=== PATIENT | female | born 1985 | race Caucasian/White ===

== ENCOUNTER 2017-03-17 12:25 | Emergency (ER) | payer SELFPAY ==
--- NOTE | 2017-03-17 13:32 | RAD ---
HISTORY: Left wrist pain and injury COMPARISONS: May 26, 2008 VIEWS: 3, Frontal, lateral, and oblique views of the left wrist FINDINGS: BONE DENSITY: Normal. BONES: There is no displaced fracture. JOINTS: There is no arthropathy. ALIGNMENT: There is no dislocation. SOFT TISSUES: Unremarkable. OTHER FINDINGS: None. IMPRESSION: NO ACUTE OSSEOUS INJURY. IF SYMPTOMS PERSIST, RECOMMEND REPEAT IMAGING.
--- NOTE | 2017-03-17 15:09 | ED ---
Upper Extremity Pain - HPI Summary HPI Summary: 31 female presents with complaints of left wrist injury that occurred while at work this morning around 11am. 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 Patient states the pain is on the medial/ulnar side. She has some ROM. Denies numbness/ tingling. No bruising or swelling. No other injuries. Has not taken any medication. Denies PMHX. - History of Current Complaint Chief Complaint: EDExtremityUpper Stated Complaint: LT WRIST INJURY Time Seen by Provider: 03/17/17 13:12 Hx Obtained From: Patient Hx Last Menstrual Period: 12/2015 Mechanism Of Injury: Twisted Onset/Duration: Started Hours Ago, Traumatic Timing: Constant Severity Initially: Mild Severity Currently: Mild Pain Location: Wrist - left Character: Sharp - with specific movement, Aching Aggravating Factor(s): Movement, Flexion, Extension, Internal/External Rotation , Abduction Alleviating Factor(s): Rest Associated Signs & Symptoms: Positive: Negative Related History: Dominant Hand Right - Allergies/Home Medications Allergies/Adverse Reactions: Allergies Allergy/AdvReac Type Severity Reaction Status Date / Time No Known Allergies Allergy Verified 03/17/17 12:35 PMH/Surg Hx/FS Hx/Imm Hx Endocrine/Hematology History: Denies: Hx Diabetes Cardiovascular History: Denies: Hx Hypertension, Hx Myocardial Infarction Respiratory History: Denies: Hx Lung Cancer - Surgical History Surgery Procedure, Year, and Place: LEFT KNEE SX X 2. CHOLECYSTECTOMY - Immunization History Immunizations Up to Date: Yes Infectious Disease History: No Infectious Disease History: Denies: Traveled Outside the [place] in Last 30 Days - Family History Known Family History: Positive: None - Social History Alcohol Use: None Substance Use Type: Reports: None Smoking Status (MU): Heavy Every Day Tobacco Smoker Type: Cigarettes Amount Used/How Often: 1/2 PPD Have You Smoked in the Last Year: Yes Review of Systems Constitutional: Negative Cardiovascular: Negative Respiratory: Negative Positive: Arthralgia, Myalgia, Decreased ROM - left wrist Skin: Negative Neurological: Negative All Other Systems Reviewed And Are Negative: Yes Physical Exam Triage Information Reviewed: Yes Vital Signs On Initial Exam: Initial Vitals Temp Pulse Resp BP Pulse Ox 97.6 F 73 16 114/66 98 03/17/17 12:35 03/17/17 12:35 03/17/17 12:35 03/17/17 12:35 03/17/17 12:35 Vital Signs Reviewed: Yes Appearance: Positive: Well-Appearing, No Pain Distress, Well-Nourished Skin: Positive: Warm, Skin Color Reflects Adequate Perfusion, Dry. Negative: Cold, Numb, Cyanosis @, Pale, Erythema @ Head/Face: Positive: Normal Head/Face Inspection Eyes: Positive: Conjunctiva Clear ENT: Positive: Hearing grossly normal Neck: Positive: Supple, Nontender Respiratory/Lung Sounds: Positive: Clear to Auscultation, Breath Sounds Present. Negative: Rales, Rhonchi, Wheezes Cardiovascular: Positive: Normal, RRR, Pulses are Symmetrical in both Upper and Lower Extremities - 2+ radial b/l. Negative: Murmur, Rub Musculoskeletal: Positive: Limited @ - with external rotation and abduction mostly. some pain and limited ROM extension and flexion however is able some, Pain @ - right medial/ulnar wrist on palpation and movement. no snuff box tenderness, no ecchymosis, edema, crepitus, step off, or obvious deformity. Negative: Abnormal @, Edema Left, Edema Right Neurological: Positive: Normal, Sensory/Motor Intact - sensation intact, Alert, Oriented to Person Place, Time, Reflexes Intact, NV Bundle Intact Distally, Normal Gait - [place] Coma Scale Coma Scale Total: 15 Diagnostics - Vital Signs Vital Signs Temp Pulse Resp BP Pulse Ox 03/17/17 13:11 97.6 F 70 16 114/66 98 03/17/17 12:35 97.6 F 73 16 114/66 98 - Laboratory Lab Statement: Any lab studies that have been ordered have been reviewed, and results considered in the medical decision making process. - Radiology wrist left Xray Interpretation: No Acute Changes Radiology Interpretation Completed By: Radiologist Course/Dx - Course Course Of Treatment: given naproxen while in ED, had relief. given brace. xray obtained and negative for fracture/dislocation. no tender or concern for forearm injury, due to complaint of symptoms and pe findings. RICE and continue NSAIDs. follow up pcp. refrain from use of wrist until symptoms improve. - Diagnoses Differential Diagnosis/HQI/PQRI: Positive: Contusion, Fracture (Closed), Strain , Sprain Provider Diagnoses: Left wrist sprain Discharge - Discharge Plan Condition: Stable Disposition: HOME Patient Education Materials: Wrist Sprain (ED) Referrals: Macarena Lerner MD [Primary Care Provider] - Rosaura Shine MD [Medical Doctor] - Additional Instructions: Continue taking aleve for pain and inflammation. Rest, elevate and ice. Wear wrist brace. Follow up with Primary care provider. Refrain from use while symptoms persist. Worsening symptoms or new symptoms please seek medical attention.
[2017-03-17] MEDS ORDERED: Naproxen TAB* 250 MG PO ONE (15:25)
[2017-03-17 15:38] VITALS: BP 111/60
== END 2017-03-17 15:37 | disposition home or self-care (01) ==
LOC: ED 12:25
DX: S63.502A Unspecified sprain of left wrist, initial encounter (principal); X50.0XXA Overexertion from strenuous movement or load, initial encounter; Y93.F2 Activity, caregiving, lifting; Y92.89 Other specified places as the place of occurrence of the external cause; F17.210 Nicotine dependence, cigarettes, uncomplicated
CPT/HCPCS: 99282

== ENCOUNTER 2017-04-29 07:32 | Emergency (ER) | payer BC ==
[2017-04-29 09:01] LABS: Urine Bacteria Absent (Absent); Urine Bilirubin Negative (Negative); Urine Glucose Negative (Negative); Urine Nitrite Negative (Negative)
[2017-04-29 09:48] LABS: Hematocrit 45 % (35-47); Hemoglobin 15.6 g/dl (12.0-16.0); Mean Corpuscular HGB Conc 35 g/dl (31-36); Mean Corpuscular Hemoglobin 31 pg (27-31); Mean Corpuscular Volume 89 fL (80-97); Mean Platelet Volume 8 um3 (7.4-10.4); Red Blood Count 5.02 10^6/ul (4.0-5.4); Red Cell Distribution Width 13 % (10.5-15); White Blood Count 9.6 10^3/ul (3.5-10.8)
[2017-04-29 10:28] LABS: ALT 11 U/L (7-52); AST 14 U/L (13-39); Albumin 4.7 g/dL (3.2-5.2); Alkaline Phosphatase 66 U/L (34-104); Anion Gap 6 mmol/L (2-11); Blood Urea Nitrogen 9 mg/dL (6-24); C Reactive Protein < 1.00 mg/L (< 5.00); CO2 Carbon Dioxide 24 mmol/L (22-32); Calcium 9.2 mg/dL (8.6-10.3); Chloride 108 mmol/L (101-111); EGFR African American 128.5 (>60); EGFR Non-African American 99.9 (>60); Globulin 2.9 g/dL (2-4); Glucose 77 mg/dL (70-100); Lipase 24 U/L (11.0-82.0); Potassium 3.8 mmol/L (3.5-5.0); Sodium 138 mmol/L (133-145); Total Protein 7.6 g/dL (6.4-8.9)
--- NOTE | 2017-04-29 10:42 | ED ---
Abdominal Pain/Female - HPI Summary HPI Summary: Pt here w/ RUQ pain x 2 days. Started yesterday while at work - felt some intermittent "cramping" sensations. Wraps around to back. Didn't think much of it as she was working and pain didn't last long. This morning had an acute bout of worse pain that triggered nausea - no vomiting and no N/V since. Had a normal BM w/o dark tarry stool or hematochezia. Denies fever, chills, chest pain , SOB, flank pain, groin pain, dysuria, urinary frequency/urgency, hematuria. She has h/o cholecystectomy and reports this feels similar to a "gallbladder attack". Does report eating shrimp and fries yesterday prior to pain starting but doesn't feel this is more fat than she's used to eating. Also admits she typically gets loose stools w/ eating too much fat since cholecystectomy and hasn't had that since. She also reports h/o ovarian cyst - not sure if this feels the same? Has nexplanon in place and no ovarian sx since placement 1 year ago. Menstruating currently - periods are unpredictable since with nexplanon. Still has appendix. - History of Current Complaint Chief Complaint: EDAbdPain Stated Complaint: RIGHT ABD PAIN Time Seen by Provider: 04/29/17 09:33 Hx Obtained From: Patient Hx Last Menstrual Period: 12/2015 Pain Intensity: 7 Allergies/Adverse Reactions: Allergies Allergy/AdvReac Type Severity Reaction Status Date / Time No Known Allergies Allergy Verified 04/29/17 07:53 PMH/Surg Hx/FS Hx/Imm Hx Previously Healthy: Yes Endocrine/Hematology History: Denies: Hx Diabetes, Hx Thyroid Disease, Hx Unexplained Bleeding, Autoimmune Disease Cardiovascular History: Denies: Hx Hypertension, Hx Myocardial Infarction Respiratory History: Denies: Hx Lung Cancer GI History: Reports: Hx Gall Bladder Disease - s/p cholecystectomy, Hx Gastroesophageal Reflux Disease - during only Denies: Hx Cirrhosis, Hx Crohn's Disease, Hx Diverticulosis, Hx Gastrointestinal Bleed, Hx Hiatal Hernia, Hx Irritable Bowel, Hx Obstructive Bowel, Hx Ulcer History: Denies: Hx Kidney Infection, Hx Kidney Stones - Surgical History Surgery Procedure, Year, and Place: LEFT KNEE SX X 2. CHOLECYSTECTOMY Infectious Disease History: No Infectious Disease History: Denies: Traveled Outside the [place] in Last 30 Days - Family History Known Family History: Positive: None - Social History Occupation: Employed Full-time - long term Lives: With Family Alcohol Use: Rare Hx Substance Use: No Substance Use Type: Reports: None Hx Tobacco Use: Yes Smoking Status (MU): Current Every Day Smoker Type: Cigarettes Amount Used/How Often: 1/2 PPD Have You Smoked in the Last Year: Yes Review of Systems Constitutional: Negative Negative: Fever, Chills, Fatigue ENT: Negative Cardiovascular: Negative Respiratory: Negative Gastrointestinal: Other - see HPI Genitourinary: Negative Musculoskeletal: Negative Skin: Negative Neurological: Negative Psychological: Normal All Other Systems Reviewed And Are Negative: Yes Physical Exam Triage Information Reviewed: Yes Vital Signs On Initial Exam: Initial Vitals Temp Pulse Resp BP Pulse Ox 98.0 F 75 14 102/58 98 04/29/17 07:51 04/29/17 07:51 04/29/17 07:51 04/29/17 07:51 04/29/17 07:51 Vital Signs Reviewed: Yes Appearance: Positive: Well-Appearing, No Pain Distress - pt sleeping comfortably on stretcher upon entrance to room, Well-Nourished Skin: Positive: Warm, Dry Head/Face: Positive: Normal Head/Face Inspection Eyes: Positive: Normal, Conjunctiva Clear - anicteric sclera ENT: Positive: Normal ENT inspection, Hearing grossly normal, Pharynx normal - mucosa moist Neck: Positive: Supple Respiratory/Lung Sounds: Positive: Clear to Auscultation, Breath Sounds Present. Negative: Rales, Rhonchi, Wheezes Cardiovascular: Positive: Normal, RRR, S1, S2 Abdomen Description: Positive: No Organomegaly, Soft, [place] Tenderness. Negative: CVA Tenderness (R), CVA Tenderness (L), Distended, Guarding Bowel Sounds: Positive: Present Musculoskeletal: Positive: Normal, Strength/ROM Intact Neurological: Positive: Normal, Sensory/Motor Intact, Alert, Oriented to Person Place, Time, CN Intact II-III Psychiatric: Positive: Normal - [place] Coma Scale Coma Scale Total: 15 Diagnostics - Vital Signs Vital Signs Temp Pulse Resp BP Pulse Ox 04/29/17 10:00 51 106/53 99 04/29/17 09:29 65 99 04/29/17 09:26 99/63 04/29/17 07:51 98.0 F 75 14 102/58 98 - Laboratory Lab Results: Lab Results 04/29/17 04/29/17 04/29/17 Range/Units 08:20 08:45 08:45 WBC 9.6 (3.5-10.8) 10^3/ul RBC 5.02 (4.0-5.4) 10^6/ul Hgb 15.6 (12.0-16.0) g/dl Hct 45 (35-47) % MCV 89 (80-97) fL MCH 31 (27-31) pg MCHC 35 (31-36) g/dl RDW 13 (10.5-15) % Plt Count 299 (150-450) 10^3/ul MPV 8 (7.4-10.4) um3 Neut % (Auto) 62.3 (38-83) % Lymph % (Auto) 29.1 (25-47) % [place] % (Auto) 5.0 (1-9) % Eos % (Auto) 2.5 (0-6) % Baso % (Auto) 1.1 (0-2) % Absolute Neuts (auto) 6.0 (1.5-7.7) 10^3/ul Absolute Lymphs (auto) 2.8 (1.0-4.8) 10^3/ul Absolute Monos (auto) 0.5 (0-0.8) 10^3/ul Absolute Eos (auto) 0.2 (0-0.6) 10^3/ul Absolute Basos (auto) 0.1 (0-0.2) 10^3/ul Absolute Nucleated RBC 0.01 10^3/ul Nucleated RBC % 0.1 Sodium 138 (133-145) mmol/L Potassium 3.8 (3.5-5.0) mmol/L Chloride 108 (101-111) mmol/L Carbon Dioxide 24 (22-32) mmol/L Anion Gap 6 (2-11) mmol/L BUN 9 (6-24) mg/dL Creatinine 0.69 (0.51-0.95) mg/dL Est GFR ( Amer) 128.5 (>60) Est GFR (Non-Af Amer) 99.9 (>60) BUN/Creatinine Ratio 13.0 (8-20) Glucose 77 (70-100) mg/dL Calcium 9.2 (8.6-10.3) mg/dL Total Bilirubin 0.30 (0.2-1.0) mg/dL AST 14 (13-39) U/L ALT 11 (7-52) U/L Alkaline Phosphatase 66 (34-104) U/L C-Reactive Protein < 1.00 (< 5.00) mg/L Total Protein 7.6 (6.4-8.9) g/dL Albumin 4.7 (3.2-5.2) g/dL Globulin 2.9 (2-4) g/dL Albumin/Globulin Ratio 1.6 (1-3) Lipase 24 (11.0-82.0) U/L Beta HCG, Quant Pending Urine Color Yellow Urine Appearance Cloudy Urine pH 6.0 (5-9) Ur Specific [place] 1.015 (1.010-1.030) Urine Protein Negative (Negative) Urine Ketones Negative (Negative) Urine Blood 3+ H (Negative) Urine Nitrate Negative (Negative) Urine Bilirubin Negative (Negative) Urine Urobilinogen Negative (Negative) Ur Leukocyte Esterase Negative (Negative) Urine WBC (Auto) Absent (Absent) Urine RBC (Auto) 3+(>10/hpf) H (Absent) Ur Squamous Epith Cells Present H (Absent) Urine Bacteria Absent (Absent) Urine Glucose Negative (Negative) Result Diagrams: 04/29/17 08:45 04/29/17 08:45 Lab Statement: Any lab studies that have been ordered have been reviewed, and results considered in the medical decision making process. Abdominal Pain Fem Course/Dx - Diagnoses Provider Diagnoses: Ovarian cyst, right, Pelvic congestion syndrome Discharge - Discharge Plan Condition: Stable Disposition: HOME Patient Education Materials: Ovarian Cyst (ED), Pelvic Rest (ED) Forms: *Work Release Referrals: Macarena Lerner MD [Primary Care Provider] - Additional Instructions: Your images today reveal a Right ovarian cyst. You also have findings of pelvic congestion syndrome. It is recommended that you rest your pelvis until cleared by [facility]/Dr. Ceballos. Call [facility] tomorrow for appointment. You may take NSAID's ( ibuprofen 600mg every 6 hours or aleve 500mg every 12 hours) in the meantime with food and try castor oil pack with heat pad for comfort. *If pain worsens or you develop vomiting, diarrhea, bloody stools, heavy vaginal bleeding, fever, chills, flank pain, return to ED
[2017-04-29] MEDS ORDERED: Iohexol 300* (CONTRAST) 10 ML SDV IV ONE (12:19)
--- NOTE | 2017-04-29 13:10 | RAD ---
CLINICAL HISTORY: Right upper quadrant tenderness to palpation, status post cholecystectomy COMPARISON: None TECHNIQUE: Multiple contiguous axial CT scans were obtained of the abdomen and pelvis after the administration of intravenous contrast. Coronal and sagittal multiplanar reformations are submitted for review. Oral contrast was administered. Delayed images were obtained through the abdomen and pelvis. FINDINGS: LUNG BASES: The lung bases are clear. LIVER: The liver is diffusely low in attenuation compared to the spleen. There are no focal hepatic parenchymal masses. The liver is at the upper limits of normal in size. BILE DUCTS: There is no intrahepatic or extrahepatic biliary dilatation. GALLBLADDER: The gallbladder is not visualized. Surgical clips are noted in the gallbladder fossa. PANCREAS: The pancreas is normal, without mass or ductal dilatation. SPLEEN: Normal in size and appearance. UPPER GI TRACT: Evaluation of the gastrointestinal tract is limited by incomplete gastric distention. The upper GI tract is unremarkable. SMALL BOWEL AND MESENTERY: The small bowel is normal in contour, course, and caliber. There is no obstruction or dilatation. COLON: The colon is normal in contour, course, caliber. There is no pericolonic inflammatory change. The appendix is not well-visualized. There is no inflammatory change within the right lower quadrant. ADRENALS: Normal bilaterally. KIDNEYS: The kidneys are normal in shape, size, contour, and axis. There is no hydronephrosis or nephrolithiasis. BLADDER: The bladder is smooth in contour. PELVIC ORGANS: There is prominence of the vasculature along the broad ligaments bilaterally with enlargement of the ovarian veins bilaterally. AORTA: The aorta is normal. IVC: Unremarkable LYMPH NODES: There is no lymphadenopathy by size criteria. ABDOMINAL WALL: There is no evidence for abdominal wall hernia. BONES AND SOFT TISSUES: Unremarkable OTHER: None IMPRESSION: 1. STATUS POST CHOLECYSTECTOMY. 2. FATTY INFILTRATION OF THE LIVER. 3. THERE IS PROMINENCE OF THE VASCULATURE ALONG THE BROAD LIGAMENTS BILATERALLY WITH ENLARGEMENT OF THE OVARIAN VEINS BILATERALLY. THIS IS SUGGESTIVE OF PELVIC CONGESTION SYNDROME IN THE CORRECT CLINICAL SETTING.
--- NOTE | 2017-04-29 15:30 | RAD ---
HISTORY: Right-sided pain COMPARISONS: CT dated April 29, 2017 TECHNIQUE: Multiple transverse and longitudinal ultrasound images were obtained of the pelvis using grayscale, color Doppler, and spectral Doppler imaging using the transabdominal transducer. FINDINGS: UTERUS: The uterus measures 8.7 x 4.8 x 5.4 cm. The uterus is normal in shape, size, contour, and echotexture. ENDOMETRIUM: The endometrial stripe is smooth. The endometrium measures 0.6 cm in thickness. CUL-DE-SAC: There is no free fluid within the cul-de-sac. RIGHT OVARY: The right ovary measures 2.7 x 2.2 x 3 cm. There is a 1.1 x 0.9 x 0.8 cm partially calcified right ovarian cyst. Several follicles are noted. Normal arterial and venous waveforms are identifiable within the ovary on spectral Doppler imaging. LEFT OVARY: The left ovary measures 2.5 x 1.8 x 2.8 cm. Normal arterial and venous waveforms are identifiable within the ovary on spectral Doppler imaging. BLADDER: The visualized bladder is unremarkable. OTHER: None IMPRESSION: 1. 1.1 CM PARTIALLY CALCIFIED RIGHT OVARIAN CYST. 2. NO SONOGRAPHIC FEATURES OF TORSION. PLEASE NOTE THAT PARTIAL OR INTERMITTENT TORSION MAY BE SONOGRAPHICALLY NORMAL. 3. THE FINDINGS SUGGESTIVE OF PELVIC CONGESTION SYNDROME NOTED ON CT ARE NOT CLEARLY VISUALIZED ON THE CURRENT EXAMINATION
[2017-04-29 16:00] VITALS: BP 107/61
== END 2017-04-29 16:01 | disposition home or self-care (01) ==
LOC: ED 07:32
DX: N83.201 Unspecified ovarian cyst, right side (principal); N94.89 Other specified conditions associated with female genital organs and menstrual cycle
CPT/HCPCS: 36415; 74177; 76856; 80053; 81003; 81015; 83690; 84702; 85025; 86140; 99282; Q9967

== ENCOUNTER 2018-01-11 12:30 | Emergency (ER) | payer BC ==
[2018-01-11 13:21] LABS: ABS Basophils 0.1 10^3/ul (0-0.2); ABS Eosinophils 0.2 10^3/ul (0-0.6); ABS Lymphocytes 3.3 10^3/ul (1.0-4.8); ABS Monocytes 0.6 10^3/ul (0-0.8); ABS Neutrophils 8.2 10^3/ul (1.5-7.7); ABS Nucleated RBC 0 10^3/ul; Eosinophil % 1.2 % (0-6); Hematocrit 43 % (35-47); Hemoglobin 14.8 g/dl (12.0-16.0); Lymphocyte % 26.6 % (25-47); Mean Corpuscular HGB Conc 35 g/dl (31-36); Mean Corpuscular Hemoglobin 32 pg (27-31); Mean Corpuscular Volume 91 fL (80-97); Mean Platelet Volume 7.8 um3 (7.4-10.4); Nucleated Red Blood Cells % 0.1; Platelet Count 239 10^3/ul (150-450); Red Blood Count 4.69 10^6/ul (4.00-5.40); Red Cell Distribution Width 13 % (10.5-15); White Blood Count 12.3 10^3/ul (3.5-10.8)
[2018-01-11 13:30] LABS: Urine Appearance Clear; Urine Blood Negative (Negative); Urine Color Yellow; Urine Ketones Negative (Negative); Urine Protein Negative (Negative); Urine Specific Gravity 1.013 (1.010-1.030); Urine Urobilinogen Negative (Negative)
[2018-01-11 13:42] LABS: EGFR Non-African American 90.7 (>60)
--- NOTE | 2018-01-11 14:15 | RAD ---
Indication: Right flank pain. CT of the abdomen and pelvis was performed without oral or IV contrast administration. Coronal and sagittal reconstructed images were obtained. Lung bases demonstrate no pleural fluid, nodules or masses. Heart is of normal size without evidence of pericardial effusion. The liver is normal in size. No focal lesions or intrahepatic biliary duct dilatation is noted. The patient is status post cholecystectomy. The spleen is normal in size. The pancreas demonstrates no mass or pancreatic ductal dilatation. No adrenal masses are noted. The kidneys demonstrate no hydronephrosis of either kidney. No hydroureter is noted. Beginning bladder is unremarkable. Aorta and inferior vena cava are unremarkable. The appendix is visualized and appears normal. No dilated loops of bowel are noted. There is a left ovarian cyst measuring up to 3.1 cm. No free fluid is identified. IMPRESSION: No obstructive uropathy is noted. 3.1 cm left ovarian cyst is noted. Appendix is normal.
--- NOTE | 2018-01-11 15:05 | ED ---
Joellen Myers Gabriel, scribed for Rc Flores MD on 01/11/18 at 1327 . Abdominal Pain/Female - HPI Summary HPI Summary: This patient is a 32 year old F presenting to [facility] with a chief complaint of right sided ABD pain that started last night. Pt states she had similar sx a week that she believed was a pulled muscle and pain resolved. The patient rates the waxing and waning dull pain 4/10 in severity. Patient denies CP, n/v/d, SOB , dysuria, and hematuria. Hx ovarian cysts and cholecystectomy. On Nexplanon. - History of Current Complaint Chief Complaint: EDAbdPain Stated Complaint: RIGHT SIDE ABD PAIN Time Seen by Provider: 01/11/18 12:47 Hx Obtained From: Patient Hx Last Menstrual Period: 12/2015 Onset/Duration: Lasting Hours, Still Present Timing: Constant Severity Initially: Mild Severity Currently: Mild Pain Intensity: 4 Pain Scale Used: 0-10 Numeric Location: Discrete At: RUQ, Discrete At: RLQ Radiates: No Character: Dull Associated Signs and Symptoms: Positive: Negative - CP, n/v/d, SOB, dysuria, Allergies/Adverse Reactions: Allergies Allergy/AdvReac Type Severity Reaction Status Date / Time No Known Allergies Allergy Verified 01/11/18 12:34 Home Medications: Home Medications Naproxen Sodium [Aleve] 220 mg PO BID PRN 01/11/18 [History Confirmed 01/11/18] PMH/Surg Hx/FS Hx/Imm Hx Endocrine/Hematology History: Denies: Hx Diabetes, Hx Thyroid Disease, Hx Unexplained Bleeding Cardiovascular History: Denies: Hx Hypertension, Hx Myocardial Infarction Respiratory History: Denies: Hx Chronic Bronchitis, Hx Chronic Obstructive Pulmonary Disease (COPD ), Hx Lung Cancer GI History: Reports: Hx Gall Bladder Disease - s/p cholecystectomy, Hx Gastroesophageal Reflux Disease - during only Denies: Hx Cirrhosis, Hx Crohn's Disease, Hx Diverticulosis, Hx Gastrointestinal Bleed, Hx Hiatal Hernia, Hx Irritable Bowel, Hx Obstructive Bowel, Hx Ulcer History: Denies: Hx Chronic Renal Failure, Hx Kidney Infection, Hx Kidney Stones - Surgical History Surgery Procedure, Year, and Place: LEFT KNEE SX X 2. CHOLECYSTECTOMY Infectious Disease History: No Infectious Disease History: Denies: Traveled Outside the [place] in Last 30 Days - Family History Known Family History: Positive: None Negative: Renal Disease, Respiratory Disease, Seizure Disorder - Social History Alcohol Use: Rare Hx Substance Use: No Substance Use Type: Reports: None Hx Tobacco Use: Yes Smoking Status (MU): Current Every Day Smoker Type: Cigarettes Amount Used/How Often: 1/2 PPD Have You Smoked in the Last Year: Yes Review of Systems Negative: Chest Pain Negative: Shortness Of Breath Positive: Abdominal Pain. Negative: Vomiting, Diarrhea, Nausea Negative: dysuria, hematuria All Other Systems Reviewed And Are Negative: Yes Physical Exam - Summary Physical Exam Summary: Appearance: Well-appearing, no distress, Well-nourished Skin: Warm, color reflects adequate perfusion Head: Normal Head/Face inspection Eyes: Conjunctiva clear ENT: Normal inspection Neck: Supple, no nodes, no JVD. Respiratory: Lungs clear, Normal breath sounds, no respiratory distress Cardio: RRR, No murmur, pulses normal, brisk capillary refill Abdomen: soft, no CVA tenderness, negative murphys sign, mildly tender in the upper ABD Bowel sounds: present Musculoskeletal: Strength Intact/ ROM intact. No calf tenderness. No edema. Neuro: Alert, muscle tone normal, facial symmetry, speech normal, sensory/motor intact Psychological: Normal Triage Information Reviewed: Yes Vital Signs On Initial Exam: Initial Vitals Temp Pulse Resp BP Pulse Ox 98.9 F 86 19 121/79 100 01/11/18 12:32 01/11/18 12:32 01/11/18 12:32 01/11/18 12:32 01/11/18 12:32 Vital Signs Reviewed: Yes Diagnostics - Vital Signs Vital Signs Temp Pulse Resp BP Pulse Ox 01/11/18 12:32 98.9 F 86 19 121/79 100 - Laboratory Lab Results: Lab Results 01/11/18 Range/Units 13:01 WBC 12.3 H (3.5-10.8) 10^3/ul RBC 4.69 (4.00-5.40) 10^6/ul Hgb 14.8 (12.0-16.0) g/dl Hct 43 (35-47) % MCV 91 (80-97) fL MCH 32 H (27-31) pg MCHC 35 (31-36) g/dl RDW 13 (10.5-15) % Plt Count 239 (150-450) 10^3/ul MPV 7.8 (7.4-10.4) um3 Neut % (Auto) 66.4 (38-83) % Lymph % (Auto) 26.6 (25-47) % Tyrrell % (Auto) 4.9 (0-7) % Eos % (Auto) 1.2 (0-6) % Baso % (Auto) 0.9 (0-2) % Absolute Neuts (auto) 8.2 H (1.5-7.7) 10^3/ul Absolute Lymphs (auto) 3.3 (1.0-4.8) 10^3/ul Absolute Monos (auto) 0.6 (0-0.8) 10^3/ul Absolute Eos (auto) 0.2 (0-0.6) 10^3/ul Absolute Basos (auto) 0.1 (0-0.2) 10^3/ul Absolute Nucleated RBC 0 10^3/ul Nucleated RBC % 0.1 Result Diagrams: 01/11/18 13:01 01/11/18 13:01 Lab Statement: Any lab studies that have been ordered have been reviewed, and results considered in the medical decision making process. - CT Abdomen/Pelvis CT CT Interpretation: No Acute Changes - IMPRESSION: No obstructive uropathy is noted. 3.1 cm left ovarian cyst is noted. Appendix is normal. Dr. Flores has reviewed this radiology report. CT Interpretation Completed By: Radiologist Re-Evaluation - Re-Evaluation First Eval Re-Evaluation Time: 14:49 Change: Improved Comment: Pt's pain has resolved. Abdominal Pain Fem Course/Dx - Course Course Of Treatment: Patient with right mid abdominal discomfort without urinary symptoms. History of post cystectomy. Normal appendix visualized on the CT scan. Patient does have history of ovarian cyst and has a 3.1 cm left- sided ovarian cyst. THis may be causing the symptoms. She is not in a great deal of pain making ovarian torsion much less likely. It is totally resolved with Toradol. She is discharged to follow closely with her [facility] at [facility] - Diagnoses Differential Diagnosis: Positive: Appendicitis, Constipation, Diverticulitis, Ectopic , Ovarian Cyst, Pancreatitis, Pelvic Inflammatory Disease, Pneumonia, , Renal Colic, Urinary Tract Infection Provider Diagnoses: Ovarian cyst Discharge - Sign-Out/Discharge Documenting (check all that apply): Discharge/Admit/Transfer - Discharge - Discharge Plan Condition: Good Disposition: HOME Prescriptions: Naproxen [Naproxen 500 mg tab] 500 mg PO BID PRN #12 tablet.dr BARRON Reason: Pain Patient Education Materials: Ovarian Cyst (ED) Forms: *Work Release Referrals: Shaquille Nguyen PA [Primary Care Provider] - Additional Instructions: Follow-up with [facility]. Call for a sooner appointment or follow-up as scheduled on February 02. Return if worse, uncontrolled pain, vomiting, fever or other concerns. - Billing Disposition and Condition Condition: GOOD Disposition: Home The documentation as recorded by the Joellen lucas Gabriel accurately reflects the service I personally performed and the decisions made by , Rc Flores MD.
[2018-01-11 15:32] VITALS: BP 124/63
== END 2018-01-11 15:31 | disposition home or self-care (01) ==
LOC: ED 12:30
DX: R10.9 Unspecified abdominal pain (principal); N83.202 Unspecified ovarian cyst, left side; F17.210 Nicotine dependence, cigarettes, uncomplicated; Z87.42 Personal history of other diseases of the female genital tract; Z90.49 Acquired absence of other specified parts of digestive tract
CPT/HCPCS: 36415; 74176; 80053; 81003; 81015; 83605; 83690; 84702; 85025; 86140; 87086; 87491; 87591; 99282

== ENCOUNTER 2018-08-03 19:01 | Emergency (ER) | payer BC ==
--- OUTSIDE RECORDS SUMMARY | 2018-08-03 19:12 | XMS REPORT | Continuity of Care Document ---
:1985 External Reference #:[id number] Author Name Alex Kumar MD Address [address] [place] [id number] Care Team Providers Name Role Phone Shaquille Nguyen Primary Care Physician Unavailable Payers Type Date Identification Numbers Payment Provider Subscriber Policy Number: [id number] Sylvie ALESSANDRA/BS Of [facility] Wendy Bernard PayID: [id number] [address] [address] [place] [address] Effective: 2011 Policy Number: [facility] Wendy Bernard [id number] Medicaid Expires: 2016 PayID: [id number] [address] [place] [address] Expires: 2016 Policy Number: [id number] Medicaid [place] Wendy Brenard PayID: [id number] [address] [place] [address] Advance Directives Description No Information Available Problems Date Description Provider Status Onset: 08/28/2014 Tobacco user Diane Moss CNM Active Onset: 11/30/2014 Right lower quadrant pain Alex Kumar MD Active Onset: 12/01/2014 Cyst of ovary Alex Kumar MD Active Onset: 07/07/2015 care Dori Malave CNM Active Onset: 09/21/2015 Encounter for surveillance of other Alex Kumar MD Active contraceptives Onset: 08/28/2014 Gynecologic examination Diane Moss CNM Resolved Resolved: 11/10/2014 Onset: 08/28/2014 Fertility care management Diane Moss CNM Resolved Resolved: 11/10/2014 Onset: 11/10/2014 Supervison Of Normal Diane Moss CNM Resolved Other Resolved: 07/07/2015 Family History Date Family Member(s) Problem(s) Comments General Diabetes General Heart Disease General Hypertension Father Unknown Mother due to COPD () Mother due to Pneumonia () Mother due to Heart Disease () Mother due to CAD () Number of Children 3 sons First Son ADHD Second Son Hernia Removed Second Son ADHD Second Son speech difficulty Third Son No Current Problems Third Brother No Current Problems First Sister Unknown First Sister Half sister Paternal Grandfather due to Unknown Causes () Paternal Grandmother due to Unknown Causes () Maternal Grandfather due to Cancer () Maternal Grandmother due to Natural Causes () Social History Type Date Description Comments Sex Unknown Education Highest level completed, 9th grade Education Has Ged Marital Status Lives With Sons Lives With Diet Healthy, Well Balanced Sleep Reports continuity disturbances Sleep Typically sleeps 6 hours a night Smoke-Free Home is smoke-free Smoke-Free Work is smoke-free Pets 1 cat Pets 1 dog 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 Abuse No history of abuse Tobacco Use Start: Unknown Current Cigarette Smoker 5-10 Cigarettes Daily Smoking Status Reviewed: 02/04/18 Current Cigarette Smoker 5-10 Cigarettes Daily ETOH Use Drinks Alcoholic Beverages Rarely Recreational Drug Use Denies Drug Use Tobacco Use Start: Unknown Patient is a current smoker, smokes every day Exercise Type/Frequency Exercises regularly Exercise Type/Frequency Walks daily Tattoo/Piercing Tattoo multiple Tattoo/Piercing Pierced ears Currently Active Patient is currently sexually active Last [place] 5 days ago Condom Use Frequently Contraceptive Methods Past methods include depo-provera injection Contraceptive Methods 09/21/[address] Kumar include nexplanon Contraceptive Methods Past methods include Ortho Tri-Cyclen Age 1st [place] 16 Years Old # Partners in a Lifetime 2 # Partners in a Lifetime Has been with current 17 years together partner for over 10 years STD's Trichomoniasis Allergies, Adverse Reactions, Alerts Description No Known Drug Allergies Medications Medication Date Status Form Strength Qnty SIG Indications Ordering Provider Tylenol 10/11 Active Tablets 325mg 1-2 pain prn Ibuprofen 10/11 Active Capsules 200mg prn Nexplanon 09/20 Active Implant 68mg L Arm lot # [id number] José 8 exp:09/2017 MD Depo-Provera 07/07 Hx Suspension 150mg/ml 1unit pt to bring s vial to [facility], - office for CNM 09/20 injection. /2016 Breast Pump 06/10 Hx Misc 1unit as deemed s covered by [facility], - insurance [facility] 02/04 company icd /2018 code:092.29 Amoxicillin 05/26 Hx Tablets 875mg 14tab 1 tab by s mouth twice [facility], - a day [facility] 06/02 Cipro 11/13 Hx Tablets 250mg 14tab 1 by mouth s twice a day Ajay, - x 7 days [facility] 11/24 One 11/10 Hx Tablets 27-0.8mg 90tab 1 by mouth Deepthi s every day, Ajay, - any [facility] 07/07 covered by insurance Naprosyn 11/27 Hx Tablets 500mg 30tab 1 tab po bid s with food as Ajay, - needed for [facility] 08/28 cramping Tylenol Extra 11/27 Hx Tablets 500mg 120ta 2 tabs po Nathanael Strength bs tid per Viki, - analgesic 09/30 profile Tramadol HCL 11/11 Hx Tablets 50mg 40tab 1 tab po tid Isela s prn pain Lul, - take with ANP 06/16 tylenol Terconazole 05/28 Hx Suppository 80mg 3unit use as 616.10 s directed x 3 Ajay, - nights [facility] 12/20 Terconazole 04/05 Hx Cream 0.8% 1Tube one 616.10 applicatorfu Ajay, - l in vagina [facility] 05/28 q hs Nystatin/Triam 04/05 Hx Cream 768578-8. 15gm apply 616.10 Deepthi cinolone 1Unit/GM- sparingly Ajay, - % bid to [facility] 05/28 affected area Flagyl 12/23 Hx Tablets 500mg 14tab 1 po bid for s 7 days Ajay, - [facility] 05/03 Nuvaring 12/22 Hx Ring 0.12-0.01 1unit use as V25.09 Marjoria 5mg/24HR s directed Jacquetay Evangelista, 08/28 [facility] Ibuprofen 08/31 Hx Tablets 600mg 90tab 1 po tid Nathanael Parson s with Ashwini Alberto M.D. 12/22 Tylenol Hx Tablets 325mg 1-2 pain Unknown - 02/19 Aleve / Hx Unknown / - 12/31 Aleve Hx Capsules 220mg as needed - 09/30 Multivitamins Hx Capsules daily Unknown - 11/10 Tums Hx Chewtabs 500mg by mouth Unknown every 4 - hours as 07/07 Medications Administered in Office Medication Date Status Form Strength Qnty SIG Indications Ordering Provider Injection 08/10 Administered Injection Nathanael Marie Drew 40 MG Immunizations CPT Code Status Date Vaccine Lot # [id number] Given 05/18/2015 Influenza Virus Vaccine, Quad, Preservative Free 3yr [id number] & up [id number] Given 03/23/2015 Tetanus, Diphtheria Toxoids/Acellular Pertussis [id number] Vaccine 7 Or > Vital Signs Date Vital Result Comment 07/09/2018 12:41pm Weight 152.00 lb Weight 68.947 kg BMI (Body Mass Index) 27.6 kg/m2 BP Systolic 116 mmHg BP Diastolic 74 mmHg Height 62.25 inches 5'2.25" Height in cm's 158.1 cm Last Menstrual Period [id number] nexplanon 3 Parity 3 02/04/2018 4:37pm Weight 144.00 lb Weight 65.318 kg BMI (Body Mass Index) 26.1 kg/m2 BP Systolic 116 mmHg BP Diastolic 64 mmHg Height 62.25 inches 5'2.25" Height in cm's 158.1 cm Last Menstrual Period [id number] 3 Parity 3 10/15/2017 11:17am Weight 147.00 lb Weight 66.679 kg BP Systolic 104 mmHg BP Diastolic 60 mmHg Last Menstrual Period [id number] 06/27/2016 2:20pm Weight 164.00 lb Weight 74.390 kg BMI (Body Mass Index) 29.8 kg/m2 BP Systolic 110 mmHg BP Diastolic 74 mmHg Height 62.25 inches 5'2.25" Height in cm's 158.1 cm Last Menstrual Period 9761991 3 Parity 3 10/12/2015 4:08pm Weight 163.00 lb Weight 73.937 kg BMI (Body Mass Index) 29.6 kg/m2 BP Systolic 110 mmHg BP Diastolic 62 mmHg Height 62.25 inches 5'2.25" Height in cm's 158.1 cm Last Menstrual Period 6649317 del 06/08/15/ nexplanon 3 Parity 3 09/21/2015 4:43pm Weight 165.00 lb Weight 74.844 kg BMI (Body Mass Index) 29.9 kg/m2 BP Systolic 108 mmHg BP Diastolic 64 mmHg Height 62.25 inches 5'2.25" Height in cm's 158.1 cm Last Menstrual Period [id number] del 06/08/15 had depo 07/07/15 3 Parity 3 07/07/2015 11:05am Weight 171.00 lb Weight 77.566 kg BMI (Body Mass Index) 31.0 kg/m2 BP Systolic 102 mmHg BP Diastolic 64 mmHg Height 62.25 inches 5'2.25" Measured Today Height in cm's 158.1 cm 3 Parity 2 11/10/2014 8:25am Weight 165.00 lb Weight 74.844 kg BMI (Body Mass Index) 29.9 kg/m2 BP Systolic 110 mmHg BP Diastolic 60 mmHg Height 62.25 inches 5'2.25" Measured Today Height in cm's 158.1 cm Last Menstrual Period 5642300 3 Parity 2 08/28/2014 12:28pm Weight 164.00 lb Weight 74.390 kg BMI (Body Mass Index) 29.8 kg/m2 BP Systolic 114 mmHg BP Diastolic 68 mmHg Height 62.25 inches 5'2.25" Height in cm's 158.1 cm Last Menstrual Period 9200149 2 Parity 2 06/16/2013 8:04am Weight 179.00 lb Weight 81.194 kg BMI (Body Mass Index) 32.7 kg/m2 BP Systolic 116 mmHg BP Diastolic 60 mmHg Height 6214 inches 5'2" Height in cm's 157.5 cm Last Menstrual Period [id number] 2 Parity 2 12/31/2012 10:52am BP Systolic 118 mmHg BP Diastolic 78 mmHg Heart Rate 72 /min Respiratory Rate 16 /min 12/20/2012 10:31am BP Systolic 108 mmHg BP Diastolic 70 mmHg Heart Rate 68 /min Respiratory Rate 17 /min 11/27/2012 10:53am BP Systolic 140 mmHg BP Diastolic 78 mmHg Heart Rate 80 /min Respiratory Rate 22 /min 05/28/2012 11:18am Weight 168.00 lb Weight 76.205 kg BMI (Body Mass Index) 30.5 kg/m2 BP Systolic 112 mmHg BP Diastolic 70 mmHg Height 62.25 inches 5'2.25" Height in cm's 158.1 cm Last Menstrual Period [id number] 2 Parity 2 04/05/2012 9:28am Weight 167.00 lb Weight 75.751 kg BMI (Body Mass Index) 30.3 kg/m2 BP Systolic 124 mmHg BP Diastolic 68 mmHg Height 62.25 inches 5'2.25" Height in cm's 158.1 cm Last Menstrual Period 9309230 2 Parity 2 05/03/2011 11:57am Weight 171.00 lb Weight 77.566 kg BMI (Body Mass Index) 31.0 kg/m2 BP Systolic 114 mmHg BP Diastolic 66 mmHg Height 62.25 inches 5'2.25" Height in cm's 158.1 cm Last Menstrual Period [id number] 2 Parity 2 01/05/2011 11:20am Weight 171.00 lb Weight 77.566 kg BMI (Body Mass Index) 31.0 kg/m2 BP Systolic 106 mmHg BP Diastolic 60 mmHg Height 62.25 inches 5'2.25" Height in cm's 158.1 cm Last Menstrual Period 7233771 2 Parity 2 12/22/2010 8:10am Weight 171.00 lb Weight 77.566 kg BMI (Body Mass Index) 33.1 kg/m2 BP Systolic 114 mmHg BP Diastolic 60 mmHg Height 60.25 inches 5'0.25" Height in cm's 153.0 cm Last Menstrual Period 1417700 2 Parity 2 06/09/2010 1:35pm Weight 164.00 lb Weight 74.390 kg BMI (Body Mass Index) 31.8 kg/m2 BP Systolic 118 mmHg BP Diastolic 68 mmHg Height 60.25 inches 5'0.25" Height in cm's 153.0 cm Last Menstrual Period 8742138 2 Parity 2 08/31/2009 2:58pm BP Systolic 116 mmHg BP Diastolic 66 mmHg Results Test Date Facility Test Result H/L Range Note Laboratory test 07/09/2018 [facility] Culture Urine <pending> finding [phone] Urinalysis Routine 06/08/2015 [facility] ([facility]) Color YELLOW [address] [place], [place] [id number] [phone] Appearance CLOUDY ! Clear Specific [place] 1.010 1.000-1.030 pH 6.5 5.0-8.0 Leukocytes TRACE ! Negative Nitrate NEGATIVE Negative Protein NEGATIVE mg/dL Negative Glucose NORMAL mg/dL Normal Ketone NEGATIVE mg/dL Negative Urobilinogen NORMAL mg/dL Normal Bilirubin NEGATIVE mg/dL Negative Hemoglobin TRACE ! Negative Urine Microscopic 06/08/2015 [facility] ([facility]) Urine Micro URINE MICROSCOPI < SEE 1 [address] NOTE> [place], [place] [id number] [phone] WBC 3-5 /HPF ! 0-2 RBC 3-5 /HPF ! None Seen 2 Bacteria MANY /HPF ! None Seen Epithelial Cells MANY /HPF ! None Seen Group B Strep Culture 05/18/2015 [facility] Lab Culture CULTURE OBSERVAT 3 [phone] <SEE NOTE> Urinalysis Routine 04/22/2015 [facility] ([facility]) Color YELLOW [address] [place], [place] [id number] [phone] Appearance CLEAR Clear Specific [place] 1.015 1.000-1.030 pH 6.5 5.0-8.0 Leukocytes NEGATIVE Negative Nitrate NEGATIVE Negative Protein NEGATIVE mg/dL Negative Glucose NORMAL mg/dL Normal Ketone NEGATIVE mg/dL Negative Urobilinogen NORMAL mg/dL Normal Bilirubin NEGATIVE mg/dL Negative Hemoglobin NEGATIVE Negative Htnobyyoy-Iuyorhvn-Wbsrd 04/22/2015 [facility] ([facility]) Cells NO 4 [address] [facility] [place] [place] [address] <SEE NOTE> [phone] Glucose Neetu Gestational 3H 03/26/2015 [facility] ([facility]) Glucose 92 mg/dL <= 95 [address] [place] [address] [phone] Gestational Glucose Range values end <SEE NOTE> mg/dL 5 Glucose 1 Hour 147 mg/dL <=180 6 Glucose 2 Hour 125 mg/dL <=155 7 Glucose 3 Hour 95 mg/dL <=140 8 Laboratory test 03/23/2015 [facility] ([facility]) Glucose 1HR 148 mg/dL High <= 130 finding [address] (OB) [place], [place] [id number] [phone] CBC Diff Man 03/23/2015 [facility] ([facility]) WBC 22.8 K/uL High 4.8-10.[address] [place] [address] [id number] [phone] RBC 3.93 M/uL Low 4.20-5.40 Hemoglobin 13.0 gm/dL 12.0-16.0 Hematocrit 36.6 % 36.0-48.0 MCV 93.1 fL 80.0-100.0 MCH 33.1 pg 27.0-34.0 MCHC 35.6 % 30.0-36.5 RDW 11.8 % 11.0-15.0 Platelet 308 K/uL 130-450 MPV 7.4 fL 6.0-12.0 Diff Type MANUAL DIFFERENT <SEE NOTE> 9 Neutrophil 79 % 37-80 Eosinophil 2 % <=8 Lymphocyte 17 % 10-50 Monocyte 2 % <=12 GC Chlamydia 02/15/2015 [facility] Lab Specimen Type Endocervical Swa 10 Amp Assay [phone] <SEE NOTE> Chlamydia NEGATIVE Negative 11 GC NEGATIVE Negative 12 GCCT Amp Methodology Methodology: Str <SEE NOTE> 13 Vaginitis Panel 02/15/2015 [facility] Trichomonas NEGATIVE Negative [phone] Antigen Gardnerella Antigen NEGATIVE Negative Trina Antigen NEGATIVE Negative Vagpnl Methodology Methodology: DNA <SEE NOTE> 14 Laboratory test 02/15/2015 [facility] ([facility]) Culture Urine CULTURE OBSERVAT [address] [place] [address] <SEE NOTE> [place], [place] 9[address] [phone] Urinalysis Routine 02/15/2015 [facility] ([facility]) Color YELLOW [address] [place] [address] [id number] [phone] Appearance CLEAR Clear Specific [place] 1.015 1.000-1.030 pH 6.0 5.0-8.0 Leukocytes NEGATIVE Negative Nitrate NEGATIVE Negative Protein NEGATIVE mg/dL Negative Glucose NORMAL mg/dL Normal Ketone NEGATIVE mg/dL Negative Urobilinogen NORMAL mg/dL Normal Bilirubin NEGATIVE mg/dL Negative Hemoglobin NEGATIVE Negative Urinalysis Routine 11/30/2014 [facility] Color STRAW [phone] Appearance HAZY ! Clear Specific [place] 1.010 1.000-1.030 pH 7.0 5.0-8.0 Leukocytes NEGATIVE Negative Nitrate NEGATIVE Negative Protein NEGATIVE mg/dL Negative Glucose NORMAL mg/dL Normal Ketone NEGATIVE mg/dL Negative Urobilinogen NORMAL mg/dL Normal Bilirubin NEGATIVE mg/dL Negative Hemoglobin NEGATIVE Negative Laboratory test 11/30/2014 [facility] Culture Urine CULTURE OBSERVAT 16 finding [phone] <SEE NOTE> GC Chlamydia Amp 11/10/2014 [facility] Specimen Type Endocervical Swa 17 Assay [phone] <SEE NOTE> Chlamydia NEGATIVE Negative 18 GC NEGATIVE Negative 19 GCCT Amp Methodology Methodology: Str <SEE NOTE> 20 Urinalysis Routine 11/10/2014 [facility] Color YELLOW [phone] Appearance CLEAR Clear Specific [place] 1.005 1.000-1.030 pH 6.0 5.0-8.0 Leukocytes NEGATIVE Negative Nitrate NEGATIVE Negative Protein NEGATIVE mg/dL Negative Glucose NORMAL mg/dL Normal Ketone NEGATIVE mg/dL Negative Urobilinogen NORMAL mg/dL Normal Bilirubin NEGATIVE mg/dL Negative Hemoglobin NEGATIVE Negative Urine Drug 11/10/2014 [facility] Amphetamine + mAmp NEGATIVE Negative Screen [phone] Barbiturate NEGATIVE Negative Benzodiazepine NEGATIVE Negative Opiates NEGATIVE Negative Cocaine NEGATIVE Negative THC NEGATIVE Negative PCP NEGATIVE Negative Methadone NEGATIVE Negative Utox Range 1 A Positive Drug <SEE NOTE> 21 Utoxrefvista Positive Cut-Off <SEE NOTE> 22 Culture Urine 11/10/2014 [facility] Culture CULTURE OBSERVAT <SEE 23 [phone] NOTE> Isolate 1 25,000 col/mL Ps <SEE NOTE> 24 Ceftazidime <=1 S Gentamicin <=1 S Ciprofloxacin <=0.25 S Levofloxacin 0.5 S Syphilis RPR 11/10/2014 [facility] ([facility]) RPR NON REACTIVE Non Reactive [address] [place] [address] [phone] RPR Methodology Methodology: Non <SEE NOTE> 25 Rubella 11/10/2014 [facility] ([facility]) Rubella 242.38 IU/mL [address] [place] [address] [phone] Rubella Ref Range < 5.0 NO <SEE NOTE> 26 Laboratory test 11/10/2014 [facility] ([facility]) Hepatitis B NON REACTIVE Non Reactive finding [address] [place] [address] Antigen [phone] Blood Type & 11/10/2014 [facility] ([facility]) Abo/Rh Typing O Rh Screen [address] [place] [place] [address] [phone] Specimen Expiration Date [id number] Antibody Screen Negative HIV Ag/AB 11/10/2014 [facility] ([facility]) HIV Ag/Ab NON REACTIVE Non Reactive 27 Combo [address] [facility] [place] [address] [phone] CBC Diff 11/10/2014 [facility] ([facility]) WBC 16.2 K/uL High 4.8-10.8 Man Diff [address] [place] [address] [phone] RBC 4.49 M/uL 4.20-5.40 Hemoglobin 14.4 gm/dL 12.0-16.0 Hematocrit 41.2 % 36.0-48.0 MCV 91.8 fL 80.0-100.0 MCH 32.1 pg 27.0-34.0 MCHC 35.0 % 30.0-36.5 RDW 11.8 % 11.0-15.0 Platelet 326 K/uL 130-450 MPV 6.9 fL 6.0-12.0 Diff Type MANUAL DIFFERENT <SEE NOTE> 28 Neutrophil 80 % 37-80 Bands 3 % Lymphocyte 12 % 10-50 Monocyte 5 % <=12 Anisocytosis 1+ Xray 12/26/2012 [facility] Knee, Complete, <pending> [address] Views, [place] [address] LT [phone] Vaginitis Panel 05/28/2012 [facility] Trichomonas NEGATIVE Negative [phone] Vaginalis Antigen Gardnerella Vaginalis Antigen NEGATIVE Negative Trina Species Antigen NEGATIVE Negative Vagpnl Methodology Methodology: DNA <SEE NOTE> 29 Vaginitis Panel 04/05/2012 [facility] Vaginitis Panel VAGINITIS PANEL [phone] Trichomonas Vaginalis Antigen NEGATIVE FOR TRI <SEE NOTE> 30 Gardnerella Vaginalis Antigen NEGATIVE FOR GAR <SEE NOTE> 31 Trina Species Antigen POSITIVE FOR CAN <SEE NOTE> 32 Vagpnl Methodology Methodology: DNA <SEE NOTE> 33 Xray 08/10/2011 [facility] Knee, 3 Views, LT <pending> [address] [place] [address] [phone] Xray 08/10/2011 [facility] Pelvis, 1 Or 2 Views <pending > [address] [place] [address] [phone] Hip, Complete, Min. Of 2 Views, LT <pending> Vaginitis Panel 12/22/2010 [facility] Vaginitis Panel VAGINITIS PANEL [phone] Trichomonas Vaginalis Antigen NEGATIVE FOR TRI <SEE NOTE> 34 Gardnerella Vaginalis Antigen POSITIVE FOR GAR <SEE NOTE> 35 Trina Species Antigen NEGATIVE FOR CAN <SEE NOTE> 36 Vagpnl Methodology Methodology: DNA <SEE NOTE> 37 Chlamydia-GC 12/22/2010 [facility] Neisseria NEGATIVE FOR 38 Antigen [phone] Gonorrhoeae NEI <SEE Antigen Test NOTE> Chlamydia Trachomatis Antigen NEGATIVE FOR CHL <SEE NOTE> 39 Gcchlam Methodology Methodology: DNA <SEE NOTE> 40 Xray 08/31/2009 [facility] Knee, 1 Or 2 Views, LT < pending> [address] [place] [address] [phone] 1 URINE MICROSCOPIC EXAM 2 The [place] [employer] has defined Microscopic Hematuria as 3 or more RBC per high powered field from a single positive urinalysis with microscopy. 3 CULTURE OBSERVATIONS CULTURE OBSERVATIONS Streptococcus agalactiae (Group B) was NOT isolated 4 NO CELLS SEEN 5 Range values endorsed by the Fourth International Workshop-Confreence on Gestational Diabetes Mellitus sponsered by [place] [employer]. 6 CORRECTED RESULT - Previously reported as: (blank) On 03/26/2015 13:40 By Verious 7 CORRECTED RESULT - Previously reported as: (blank) On 03/26/2015 13:40 By Verious 8 CORRECTED RESULT - Previously reported as: (blank) On 03/26/2015 13:40 By [email or web address] 9 MANUAL DIFFERENTIAL 10 Endocervical Swab 11 A negative result does not rule out Chlamydia trachomatis infection because results are dependent on adequate specimen collection, absence of inhibitors, and sufficient DNA to be detected. 12 A negative result does not rule out Neisseria gonorrhoeae infection because results are dependent on adequate specimen collection, absence of inhibitors, and sufficient DNA to be detected. 13 Methodology: Strand Displacement Amplification 14 Methodology: DNA Probe 15 CULTURE OBSERVATIONS CULTURE OBSERVATIONS Mixed growth consistent with vaginal raza present including Rare Yeast 16 CULTURE OBSERVATIONS CULTURE OBSERVATIONS Mixed growth consistent with vaginal raza present MRSA screen test negative 17 Endocervical Swab 18 A negative result does not rule out Chlamydia trachomatis infection because results are dependent on adequate specimen collection, absence of inhibitors, and sufficient DNA to be detected. 19 A negative result does not rule out Neisseria gonorrhoeae infection because results are dependent on adequate specimen collection, absence of inhibitors, and sufficient DNA to be detected. 20 Methodology: Strand Displacement Amplification 21 A Positive Drug Screen will not be Confirmed unless requested by the Physician. Please contact the Lab ([phone]) within 5 days for Confirmation Testing. 22 Positive Cut-Off Values Siemens [place] 500 Analyzer Amphetamine/ mAMP 1000 ng/ml Barbiturate 200 ng/ml Benzodiazepine 200 ng/ml Cocaine 300 ng/ml Opi ate 300 ng/ml Marijuana (THC) 50 ng/ml Phencyclidine (PCP) 25 ng/ml Methadone 300 ng/ml 23 CULTURE OBSERVATIONS CULTURE OBSERVATIONS Mixed growth consistent with vaginal raza present MRSA screen test negative 24 25,000 col/mL Pseudomonas aeruginosa 25 Methodology: Nontreponemal Flocculation Test 26 < 5.0 NON IMMUNE 5.0 - 9.9 INDETERMINANT > 9.9 IMMUNE 27 Methodology: [employer]Z [employer]ER [id number] Chemiluminescent Microparticle Assay Specificityof >99% Sensitivity of >94% 28 MANUAL DIFFERENTIAL 29 Methodology: DNA Probe 30 NEGATIVE FOR TRICHOMONAS VAGINALIS ANTIGEN 31 NEGATIVE FOR GARDNERELLA VAGINALIS ANTIGEN 32 POSITIVE FOR TRINA SPECIES ANTIGEN 33 Methodology: DNA Probe 34 NEGATIVE FOR TRICHOMONAS VAGINALIS ANTIGEN 35 POSITIVE FOR GARDNERELLA VAGINALIS ANTIGEN 36 NEGATIVE FOR TRINA SPECIES ANTIGEN 37 Methodology: DNA Probe 38 NEGATIVE FOR NEISSERIA GONORRHOEAE ANTIGEN 39 NEGATIVE FOR CHLAMYDIA TRACHOMATIS ANTIGEN A negative chlamydia test result does not exclude infection because results are affected by improper specimen collection. Specimen must contain cells from the endocervical canal, male urethra or conjun tiva. Chlamydiae are not found in squamous epithelial cells. 40 Methodology: DNA Probe Procedures Date Code Description Status 07/09/2018 57668 Ultrasound Transvaginal Completed 02/04/2018 41512 Ultrasound Transvaginal Completed 10/15/2017 26888 Ultrasound Transvaginal Completed 09/21/2015 84816 Insertion, Non-Biodegradable Drug Delivery Implant Completed 07/07/2015 27823 Therapeutic/Prophylactic/Diagnostic Inj(Subcu/Im) (Specify Completed Drug) 06/08/2015 75956 Vaginal Delivery,Antepartum And Care Completed 05/26/2015 93476 Ultrasound Uterus Follow Up-Reevaluation Completed Size By 05/10/2015 90335 Non-Stress Test Completed 05/04/2015 00572 Ultrasound Uterus Follow Up-Reevaluation Completed Size By 01/07/2015 95176 Ultrasound Uterus,Real Time W.Image Documentation,After Completed 1St Trim 12/01/2014 14439 Ultrasound Uterus Limited Completed 11/30/2014 98697 Ultrasound Uterus Limited Completed 11/24/2014 61471 Ultrasound,1St Trim Nuchal Translucency (1St Gest) Completed 12/26/2012 04463 X-Ray Knee Complete W/Obliques & Tunnel Completed 11/11/2012 61353 X-Ray Knee Ap & Lateral W/Obliques Three Views Completed 11/11/2012 74873 X-Ray Knee Ap & Lateral W/Obliques Three Views Completed 02/20/2012 28620 X-Ray Knee Ap & Lateral W/Obliques Three Views Completed 01/10/2012 11522 Arthroscopy Knee Synovectomy Limited Completed 08/10/2011 67000 X-Ray Knee Ap & Lateral W/Obliques Three Views Completed 08/10/2011 47606 X-Ray Hip Complete Two Views WC Only Completed 08/10/2011 95713 X-Ray Pelvis Ap Only Completed 08/10/2011 25225 Arthrocentesis Major Joint/Bursa/Ganglion Cyst Completed Inject/Drain 01/05/2011 28596 Ultrasound Transvaginal Completed 08/31/2009 86176 X-Ray Knee Ap & Lateral Completed Encounters Type Date Location Provider Dx Diagnosis Office Visit 07/09/2018 [facility] Alex N83.291 Other ovarian 2:15p And Gynecology MD José cyst, right side R10.32 Left lower quadrant pain Z30.8 Encounter for other contraceptive management F39 Unspecified mood [affective] disorder Office Visit 02/04/2018 11:30a Carol Ann Goodman 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.419 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 [facility] 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 (general) Ups (routine) w/o abn findings N83.201 Unspecified ovarian cyst, right side N83.202 Unspecified ovarian cyst, left side Office Visit 10/15/2017 Carol Ann Sandersonu N83.201 Unspecified 11:45a Obstetrics And [facility] ovarian cyst, Gynecology Ups right side N83.202 Unspecified ovarian cyst, left side M54.5 Low back pain Office Visit 06/27/2016 2:15p Carol Annmarquise Monterroso Deepthi Z01.419 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 [facility] exam (general) Ups (routine) w/o abn findings Z79.3 MCFP (current) use of hormonal contraceptives Office Visit 10/12/2015 Carol Ann Johnson Z30.49 Encounter for 9:45a Obstetrics Ben Kumar MD surveillance of Gynecology other contraceptives Office Visit 05/10/2015 Carol Ann Santillan O47.00 False labor before 2:30p Obstetrics Ben Evangelista CNM 37 completed weeks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
--- OUTSIDE RECORDS SUMMARY | 2018-08-03 19:12 | XMS REPORT | Continuity of Care Document ---
:1985 Author Organization [facility] Support Name Relationship Address Phone GERALDO CURRY spouse [address] [place] [address] GERALDO CURRY spouse [address] [place] [address] Allergies and Intolerances No Known Allergies Medications RxNorm Medication Dose Route Instructions Start End Date Status Date Azithromycin (500 mg x 1 Active day, then 250 mg x 4 days) 478438 Etonogestrel 68 1 implant Subdermal subdermally once Active MG Drug Implant Problems Code Code System Problem Name Start Date End Date Status 85883789 SNOMED-CT Sprain of ankle 08/15/2012 05:00 Active 965046607 SNOMED-CT Gastroesophageal reflux U Active disease Procedures Code Code System Procedure Date CHOLECYSTECTOMY U Results Laboratory Results Order: URINALYSIS ROUTINE Specimen Source : Body Site: Legend: (G,H)=High, (GG,HH,CH,#H)=Above High Threshold, (#,L)=Low, (##,CL,#L,LL)=Below Low Threshold, (C,CC,CA,#A,A)=Abnormal LOINC Test Result Flag Range Units Date 5778-6 1Color Ur YELLOW 07/09/2018 14:33 28776-4 1Turbidity Ur Ql CLEAR CLEAR 07/09/2018 14:33 5811-5 1Sp Gr Ur Strip 1.015 1.000-1.030 07/09/2018 14:33 5803-2 1pH Ur Strip 7.0 5.0-8.0 07/09/2018 14:33 59898-9 1WBC # Ur Strip TRACE ! NEGATIVE 07/09/2018 14:33 5802-4 1Nitrite Ur Ql Strip NEGATIVE NEGATIVE 07/09/2018 14:33 5804-0 1Prot Ur Strip-mCnc NEGATIVE NEGATIVE mg/dL 07/09/2018 14:33 5792-7 1Glucose Ur Strip-mCnc NORMAL NORMAL mg/dL 07/09/2018 14:33 5797-6 1Ketones Ur Strip-mCnc NEGATIVE NEGATIVE mg/dL 07/09/2018 14:33 70080-2 1Urobilinogen Ur 1 ! NORMAL mg/dL 07/09/2018 14:33 Strip-mCnc 49019-5 1Bilirub Ur Strip-mCnc NEGATIVE NEGATIVE mg/dL 07/09/2018 14:33 5794-3 1Hgb Ur Ql Strip NEGATIVE NEGATIVE 07/09/2018 14:33 Performing Lab Footnotes:[facility] - [id number] - [address] [place] [address] ELOISA Alaniz [id number] Order: URINE MICROSCOPIC Specimen Source: Body Site: Legend: (G,H)=High , (GG,HH,CH,#H)=Above High Threshold, (#,L)=Low, (##,CL,#L,LL)=Below Low Threshold, (C,CC,CA,#A,A)=Abnormal LOINC Test Result Flag Range Units Date 1URINE MICROSCOPIC EXAM 5821-4 1WBC #/area UrnS HPF 0-2 0-2 /HPF 07/09/2018 14:33 5808-1 1RBC # UrnS HPF NONE SEEN NONE SEEN /HPF 07/09/2018 14:33 89734-5 1Bacteria UrnS Ql Micro FEW ! NONE SEEN /HPF 07/09/2018 14:33 5787-7 1Epi Cells #/area UrnS HPF FEW ! NONE SEEN /HPF 07/09/2018 14:33 8246-1 1Amorph Sed UrnS Ql Micro 2+ ! NONE SEEN /HPF 07/09/2018 14:33 Performing Lab Footnotes:[facility] - [id number] [place] [address] ELOISA SALDIVAR Microbiology Results w Susceptibilities Order: CULTURE URINE Specimen Source: Urine Body Site: Urine specimen collection, clean catchCultural Observations:Few colonies of mixed growth consistent with vaginal raza [id number] Rare Streptococcus agalactiae (Group B)1Performing Lab Footnotes:[facility] - [id number] [place] [address] ELOISA SALDIVAR Social History Code Code System Social History Description Dates Observed Observation 502396519 SNOMED CT Current Smoking Unknown if ever Status smoked UNK AdministrativeGender Sex Assigned At Unknown Vital Signs No data in the system Goals Section No data in the system Health Concerns No data in the systemEncounter Diagnosis Date Code Code System Diagnosis Status N39.0 ICD10 UTI SITE NOT SPECIFIED Active Advance Directives PT STATES NO ADVANCE DIRECTIVES Directive Type Effective Date Graduate Research Assistant Notes Supporting Document Name Address Phone No Directive Type 06/08/2015 Not Specified Not Specified Not Specified None No specified 12:01:06 AM *RHIO - CONSENT IS YES Directive Type Effective Date Graduate Research Assistant Notes Supporting Document Name Address Phone No Directive Type 10/23/2014 2:03:57 Not Specified Not Specified Not Specified None No specified PM Family History Family History Unknown Functional Status No data in the system Immunizations Vaccine Code Code System Vaccine Name Date Status UTD Completed Medical Equipment No data in the system Mental Status No data in the system Assessment and Plan Assessments No data in the systemPlan Of Treatment No data in the systemPending Tests No data in the system Hospital Discharge Instructions No data in the system Reason for Visit No data in the system
--- NOTE | 2018-08-03 20:02 | UC ---
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 -h/o GB removal. -room spinning dizziness started last night w/ vomiting. that resolved. went to bed. started getting right mid abd "cramping". lasts for 5-6 secs and resolves for ~ 1 hr. no fever. decreased appetite. -has known ovarian cuysts. getting over period now. has nexplonon that she is getting removed this week bc ineffective for ovarian cysts. she is also on a 21 day combined oral contraceptive to help prevent cysts. -no known kidney stone. no FHx stones. unable to tell hematuria bc has menses - History of Current Complaint Chief Complaint: UCAbdominalPain Stated Complaint: LOWER ABD PAIN, NAUSEA Time Seen by Provider: 08/03/18 20:01 Hx Last Menstrual Period: 07/30/18 (2nd menstrual bleeding this month) Pain Intensity: 2 Allergies/Adverse Reactions: Allergies Allergy/AdvReac Type Severity Reaction Status Date / Time No Known Allergies Allergy Verified 08/03/18 19:54 Home Medications: Home Medications O C 1 tab PO QAM 08/03/18 [History] PMH/Surg Hx/FS Hx/Imm Hx Previously Healthy: Yes - Surgical History Surgical History: Yes Surgery Procedure, Year, and Place: LEFT KNEE SX X 2. CHOLECYSTECTOMY - Family History Known Family History: Positive: None Negative: Renal Disease, Respiratory Disease, Seizure Disorder - Social History Alcohol Use: Rare Substance Use Type: None Smoking Status (MU): Light Every Day Tobacco Smoker Type: Cigarettes Amount Used/How Often: 1/2 PPD Have You Smoked in the Last Year: Yes Review of Systems All Other Systems Reviewed And Are Negative: Yes Constitutional: Positive: Fatigue Skin: Positive: Negative Eyes: Positive: Negative ENT: Positive: Negative Respiratory: Positive: Negative Cardiovascular: Positive: Negative Gastrointestinal: Positive: Abdominal Pain, Nausea Genitourinary: Positive: Negative Motor: Positive: Negative Neurovascular: Positive: Negative Musculoskeletal: Positive: Negative Neurological: Positive: Negative Psychological: Positive: Negative Is Patient Immunocompromised?: No Physical Exam Triage Information Reviewed: Yes Appearance: Well-Appearing, Well-Nourished, Pain Distress - mild. lying on exam table but able to sit up without any problem. Vital Signs: Initial Vital Signs Temp 98.8 F 08/03/18 19:41 Pulse 81 08/03/18 19:41 Resp 20 08/03/18 19:41 BP 114/65 08/03/18 19:41 Pulse Ox 99 08/03/18 19:41 Vital Signs Reviewed: Yes Eye Exam: Normal ENT Exam: Normal ENT: Positive: Pharynx normal Neck exam: Normal Neck: Positive: Supple, Nontender, No Lymphadenopathy Respiratory Exam: Normal Respiratory: Positive: Lungs clear, Normal breath sounds, No respiratory distress, No accessory muscle use. Negative: Crackles, Rhonchi, Stridor, Wheezing Cardiovascular Exam: Normal Cardiovascular: Positive: RRR, No Murmur Abdomen Description: Positive: Nontender, Soft, CVA Tenderness (R) - possible mild, CVA Tenderness (L) - possible mild. Negative: No Organomegaly, Distended , Guarding, Hepatomegaly, McBurney's Point Tenderness, Peritoneal Signs, Pulsatile Mass, Splenomegaly Bowel Sounds: Positive: Present Musculoskeletal Exam: Normal Neurological Exam: Normal Psychological Exam: Normal Skin Exam: Normal Abd Pain Female Course/Dx - Course Course Of Treatment: urine HCG negative. CT A/P w/o contrast. kidney stone protocol. negative. no kidney stones. appendix nml. ovaries nml. f/u with PATIENT FINANCIAL SERVICES SPECIALIST this week and PCP. To ER with worsening pain. -requests OOW note for 08/04/18 - reports at 3 AM. granted. - Differential Dx/Diagnosis Differential Diagnosis: Irritable Bowel Syndrome, Ovarian Cyst, Renal Colic Provider Diagnosis: Abdominal pain Discharge - Sign-Out/Discharge Documenting (check all that apply): Patient Departure All imaging exams completed and their final reports reviewed: Yes - Discharge Plan Condition: Stable Disposition: HOME Patient Education Materials: Abdominal Pain (ED) Forms: *Work Release Referrals: Shaquille Nguyen PA [Primary Care Provider] - 5 Days Additional Instructions: Get plenty of rest. Your CT scan is reassuringly normal. We have given you a copy to share with your PATIENT FINANCIAL SERVICES SPECIALIST and PCP that you should follow up with this week. - Billing Disposition and Condition Condition: STABLE Disposition: Home
[2018-08-03 21:49] VITALS: BP 115/79
== END 2018-08-03 22:16 | disposition home or self-care (01) ==
LOC: UCCORT 19:01
DX: R10.31 Right lower quadrant pain (principal); F17.210 Nicotine dependence, cigarettes, uncomplicated
CPT/HCPCS: 74176; 84702; 99212; G0463

== ENCOUNTER 2019-10-04 17:18 | Emergency (ER) | payer BC, OTHER ==
[2019-10-04 17:52] VITALS: BP 113/69
--- NOTE | 2019-10-04 18:06 | UC ---
Throat Pain/Nasal Toro HPI - HPI Summary HPI Summary: 34 y/o female presents to the urgent care c/o sinus congestion w/ yellowish nasal discharge for the past 5 days. Symptoms worsen yesterday w/ a lot of sinus pressure and today w/ B/L ear pain. She has Hx of sinusitis and ear infection. Pain on both ear is 4/10. She took Tylenol PO to alleviate symptoms. Pt denies fever, cough, SOB, recent travel in the past month, abdominal pain, N/V/D or dizziness. - History of Current Complaint Chief Complaint: UCRespiratory Stated Complaint: SINUS PRESSURE/ BILATERAL EAR Time Seen by Provider: 10/04/19 17:48 Hx Obtained From: Patient Hx Last Menstrual Period: 09/17 Onset/Duration: Gradual Onset, Lasting Days - 5 days, Worse Since - yesterday w / sinus pressure and B/l ear pain Severity: Moderate Pain Intensity: 4 - left ear pain Pain Scale Used: 0-10 Numeric Cough: None Associated Signs & Symptoms: Positive: Sinus Discomfort, Nasal Discharge - yellowish, Other - B/L ear pain - Epiglottits Risk Factors Epiglottis Risk Factors: Negative - Allergies/Home Medications Allergies/Adverse Reactions: Allergies Allergy/AdvReac Type Severity Reaction Status Date / Time No Known Allergies Allergy Verified 10/04/19 17:51 Home Medications: Home Medications Acetaminophen [Acetaminophen Extra Strength] 1,000 mg PO Q6H PRN 10/04/19 [ History Confirmed 10/04/19] Amoxicillin PO (*) [Amoxicillin 875 MG (*)] 875 mg PO BID #20 tab 10/04/19 [Rx] Copper (Iud) [Paragard IUD] 1 unit IU SEE INSTRUCTIONS 10/04/19 [History Confirmed 10/04/19] Fluticasone NASAL SPRAY 50MCG* [Flonase NASAL SPRAY 50MCG*] 2 spray BOTH NARES DAILY #1 btl 10/04/19 [Rx] PMH/Surg Hx/FS Hx/Imm Hx Previously Healthy: Yes - Surgical History Surgical History: Yes Surgery Procedure, Year, and Place: LEFT KNEE SX X 2. CHOLECYSTECTOMY - Family History Known Family History: Positive: None Negative: Renal Disease, Respiratory Disease, Seizure Disorder - Social History Alcohol Use: Rare Substance Use Type: None Smoking Status (MU): Light Every Day Tobacco Smoker Type: Cigarettes Amount Used/How Often: 1/2 PPD Have You Smoked in the Last Year: Yes Review of Systems All Other Systems Reviewed And Are Negative: Yes Constitutional: Positive: Negative Skin: Positive: Negative Eyes: Positive: Negative ENT: Positive: Ear Ache - B/L ear pain, Nasal Discharge - yellowish, Sinus Congestion, Sinus Pain/Tenderness, Other - PND Respiratory: Positive: Negative Cardiovascular: Positive: Negative Gastrointestinal: Positive: Negative Genitourinary: Positive: Negative Motor: Positive: Negative Neurovascular: Positive: Negative Musculoskeletal: Positive: Negative Neurological/Mental Status: Positive: Headache Psychological: Positive: Negative Is Patient Immunocompromised?: No Physical Exam - Summary Physical Exam Summary: Vitals: reviewed General: Well developed, well-nourished male patient with NAD. Head and face: Normocephalic and atraumatic, Positive tenderness over the frontal and maxillary sinuses.. Eyes: PERRLA, EOMI x 2. Normal conjunctiva. No eye discharge. ENT: Ears: no pre- or postauricular lymphadenopathy or erythema; B/L external ear canal clears, Left TM injected w/ erythema and yellowish drainage, RT TM WNL. No perforation. Nose: edematous and erythematous nasal mucosa with yellowish discharge and erythematous mucosa. Pharynx with erythema, no exudate. Yellowish PND Neck: Supple, no JVD, no carotid bruits and no lymphadenopathy. Lungs: clear, no rales, no rhonchi, no wheezes. CVS: RRR, S1 and S2 present no murmurs or gallops appreciated. Abdomen: soft nontender with positive bowel sounds. Extremities: no edema noted. Neuro: WNL. Skin: warm and dry Triage Information Reviewed: Yes Vital Signs: Initial Vital Signs Temp 98.7 F 10/04/19 17:46 Pulse 83 10/04/19 17:46 Resp 20 10/04/19 17:46 BP 113/69 10/04/19 17:46 Pulse Ox 100 10/04/19 17:46 Throat Pain/Nasal Course/Dx - Course Course Of Treatment: 34 y/o female presents to the urgent care c/o sinus congestion w/ yellowish nasal discharge for the past 5 days. Symptoms worsen yesterday w/ a lot of sinus pressure and today w/ B/L ear pain. She has Hx of sinusitis and ear infection. Pain on both ear is 4/10. She took Tylenol PO to alleviate symptoms. Pt denies fever, cough, SOB, recent travel in the past month, abdominal pain, N/V/D or dizziness. Hx obtained. Pt w/ Left otitis media and sinusitis on examination. Pt Rx Amoxicillin PO and flonase nasal spray. Discharge instructions explained to Pt. Advised to Return to the clinic or PCP in 3 days if symptoms do not improve. Pt understood and agreed with plan of care. - Differential Dx/Diagnosis Differential Diagnosis/HQI/PQRI: Laryngitis, Otitis Media, Pharyngitis, Sinusitis, URI Provider Diagnosis: Left otitis media, Sinusitis, acute Discharge ED - Sign-Out/Discharge Documenting (check all that apply): Patient Departure - D/c home All imaging exams completed and their final reports reviewed: No Studies - Discharge Plan Condition: Stable Disposition: HOME Prescriptions: Amoxicillin PO (*) [Amoxicillin 875 MG (*)] 875 mg PO BID #20 tab Fluticasone NASAL SPRAY 50MCG* [Flonase NASAL SPRAY 50MCG*] 2 spray BOTH NARES DAILY #1 btl Patient Education Materials: Sinusitis (ED), Ear Infection (ED) Referrals: Gold Morales PA [Primary Care Provider] - 3 Days Additional Instructions: 1- Please increase fluid intake and rest. take full course of antibiotics to avoid resistance. Take yogurts w/ probiotics or Culturelle to protect your GI system 2-Use Flonase as directed to help drain fluid. Also buy saline drops to clear sinuses 3-Continue taking Tylenol or Ibuprofen PO to alelviate CRUZ and otalgia 4-Please f/u w/ your PCP in 3 days if symptoms do not improve for further management and treatment - Billing Disposition and Condition Condition: STABLE Disposition: Home
== END 2019-10-04 18:18 | disposition home or self-care (01) ==
LOC: UCCORT 17:18
DX: H66.92 Otitis media, unspecified, left ear (principal); J01.90 Acute sinusitis, unspecified; F17.210 Nicotine dependence, cigarettes, uncomplicated
CPT/HCPCS: 99212; G0463